=== PATIENT | female | born 1960 | race Caucasian/White ===

== ENCOUNTER 2024-03-25 11:05 | Outpatient (OUT) | payer BC, SELFPAY ==
[2024-03-25 11:32] LABS: Basophils Absolute Auto 0.1 10^3/uL (0.0-0.1); Basophils Percent Auto 1.5 % (0.2-2.0); Eosinophils Absolute Auto 0.2 10^3/uL (0.0-0.7); Hematocrit 41.2 % (36.0-48.0); Hemoglobin 13.7 g/dL (12.0-16.0); Immature Granulocytes Abs Auto 0.01 10^3/uL (0.00-0.03); Immature Granulocytes Pct Auto 0.1 % (0.0-0.5); Lymphocytes Percent Auto 30.1 % (20.5-60.0); Mean Corpuscular HGB Conc 33.3 g/dL (29.9-35.2); Mean Corpuscular Hemoglobin 30.4 pg (26.7-34.0); Mean Corpuscular Volume 91.6 fL (81.0-99.0); Mean Platelet Volume 10.1 fL (9.5-13.5); Monocytes Absolute Auto 0.7 10^3/uL (0.3-0.8); Monocytes Percent Auto 9.6 % (1.7-12.0); Neutrophils Absolute Auto 3.8 10^3/uL (1.4-6.5); Neutrophils Percent Auto 55.7 % (43.0-75.0); Platelet Count 290 10^3/uL (150-450); White Blood Count 6.8 10^3/uL (4.0-11.0)
[2024-03-25 13:16] LABS: Estimated Average Glucose 105 mg/dL; Glycohemoglobin A1C 5.3 % (4.5-6.2)
[2024-03-25 14:32] LABS: Alanine Aminotransferase 27 U/L (14-59); Albumin Globulin Ratio 1.3; Albumin Level 4.4 g/dL (3.4-5.0); Alkaline Phosphatase 70 U/L (46-116); Anion Gap 14.2; Aspartate Amino Transferase 23 U/L (15-37); BUN Creatinine Ratio 21.2; Bilirubin Total 0.5 mg/dL (0.2-1.0); Calcium 9.2 mg/dL (8.5-10.1); Carbon Dioxide 26.8 mmol/L (21.0-32.0); Chloride 100 mmol/L (98-107); Chol HDL Ratio 3.1; Cholesterol 194 mg/dL (<=200); Estimated GFR (African America >60 (>=60); Estimated GFR (Non-African Ame >60 (>=60); Free T3 2.22 pg/mL (2.18-3.98); Globulin 3.4 g/dL; Glucose 76 mg/dL (74-106); HDL Cholesterol 62 mg/dL (40-60); Sodium 137 mmol/L (136-145); Total Protein 7.8 g/dL (6.4-8.2); Triglycerides 80 mg/dL (<=150)
== END 2024-03-25 11:06 | disposition home or self-care (01) ==
PROVIDERS: PCP Family Medicine; Visit Provider Family Medicine
DX: Z00.00 Encounter for general adult medical examination without abnormal findings (principal); E55.9 Vitamin D deficiency, unspecified
CPT/HCPCS: 36415; 80053; 80061; 82306; 83036; 83540; 84436; 84443; 84481; 85025

== ENCOUNTER 2024-03-29 15:36 | Outpatient (OUT) | payer BC, SELFPAY ==
--- NOTE | 2024-03-29 15:38 | MR_ITS ---
[address] [address] Patient Name: SHAUN HERNANDEZ MRN: [id number] date: 1960 Sex: F Assigned Patient Location: MRI Current Patient Location: [facility] Accession/Order Number: [id number] Exam Date: 03/29/2024 15:52 Report Date: 03/30/2024 22:06 At the request of: SAMIR ESCOBAR Procedure: MR cervical spine wo con EXAM: MRI of the cervical spine without IV contrast. REASON FOR EXAM: Cervical Radiculopathy M54.12 COMPARISON: None FINDINGS: No cervical spine fractures, acute malalignment or acute abnormal marrow signal. No spinal canal mass, hematoma or fluid collection. No abnormal cord signal. Cervical spine degenerative changes with associated disc space narrowing at the C4-C5, C5-C6 and C6-C7 levels. Posterior disc osteophyte complexes at the C3-C4, C4-C5, C5-C6 and C6-C7 levels, largest at the C6-C7 level. Mild C3-C4, C4-C5, C5-C6 and C6-C7 spinal canal stenoses. Mild left C3-C4 neural foraminal stenosis. Mild left and mild to moderate right C4-C5 neural foraminal stenoses. Mild to moderate bilateral C5-C6 neural foraminal stenoses. Mild left C6-C7 neural foraminal stenosis. Remainder unremarkable. MR/MR cervical spine wo con IMPRESSION: 1. No acute cervical spine abnormalities. 2. Mild C3-C4, C4-C5, C5-C6 and C6-C7 spinal canal stenoses. 3. Mild to moderate right C4-C5 and bilateral C5-C6 neural foraminal stenoses. Electronically authenticated by: BETH YODER Date: 03/30/2024 22:06
== END 2024-03-29 15:37 | disposition home or self-care (01) ==
LOC: MRI 15:36
PROVIDERS: PCP Family Medicine; Visit Provider Family Medicine
DX: M54.12 Radiculopathy, cervical region (principal); M48.02 Spinal stenosis, cervical region
CPT/HCPCS: 72141

== ENCOUNTER 2024-04-05 12:59 | Outpatient (OUT) | payer BC, SELFPAY ==
--- NOTE | 2024-04-05 13:02 | XR_ITS ---
The [address] [address] Patient Name: SHAUN HERNANDEZ MRN: [id number] date: 1960 Sex: F Assigned Patient Location: [facility] Current Patient Location: Accession/Order Number: [id number] Exam Date: 04/05/2024 13:10 Report Date: 04/06/2024 07:16 At the request of: SAMIR ESCOBAR Procedure: XR DEXA axial skeleton EXAMINATION: XR DEXA axial skeleton HISTORY: Senile osteoporosis COMPARISON: DEXA bone densitometry 09/08/2020 TECHNIQUE: Dual-energy X-ray absorptiometry (DXA) was performed. FINDINGS: FOREARM ANALYSIS: Average bone mineral density is 0.726 g/cm2. T-score (standard deviation relative to young adult mean): 0.2 . +2.5% change since prior study. HIP ANALYSIS: Lowest bone mineral density is within the left femoral neck, 0.779 g/cm2. T-score (standard deviation relative to young adult mean): -1.9 . -0.1% change since prior study. XR/XR DEXA axial skeleton IMPRESSION: World Health Organization Classification: Osteopenia - Moderate Fracture Risk FRAX: Cannot calculate. Pharmacologic treatment recommendations * No uniform recommendation applies to all patients. Management plans must be individualized. * Consider initiating pharmacologic treatment in postmenopausal women and men >= 50 years of age who have the following: Primary fracture prevention: * T-score <= - 2.5 at the femoral neck, total hip, lumbar spine, 33% radius (some uncertainty with existing data) by DXA. * Low bone mass (osteopenia: T-score between - 1.0 and - 2.5) at the femoral neck or total hip by DXA with a 10-year hip fracture risk >= 3% or a 10-year major osteoporosis-related fracture risk >= 20% (i.e., clinical vertebral, hip, forearm, or proximal humerus) based on the [place]-adapted FRAXregistered model. Secondary fracture prevention: * Fracture of the hip or vertebra regardless of BMD [4, 5]. * Fracture of proximal humerus, pelvis, or distal forearm in persons with low bone mass (osteopenia: T-score between - 1.0 and - 2.5). The decision to treat should be individualized in persons with a fracture of the proximal humerus, pelvis, or distal forearm who do not have osteopenia or low BMD [12, 13]. Irene MS, Lobo SL, Monique KL, Meaghan EM, Andi KG, AJ, Patti ES. The clinician's guide to prevention and treatment of osteoporosis. Osteoporos Int. 2021;33(10):0126-6864. doi: 10.1007/r58607-721-54254-w. Epub 2021Dec 06. Erratum in: Osteoporos Int. 2021Mar 07;: PMID: [id number]; PMCID: [id number]. Electronically authenticated by: LIGIA CAN Date: 04/06/2024 07:16
== END 2024-04-05 13:00 | disposition home or self-care (01) ==
LOC: RAD 13:00
PROVIDERS: PCP Family Medicine; Visit Provider Family Medicine
DX: M81.0 Age-related osteoporosis without current pathological fracture (principal); M85.80 Other specified disorders of bone density and structure, unspecified site
CPT/HCPCS: 77080

== ENCOUNTER 2024-07-06 12:04 | Outpatient (OUT) | payer BC, SELFPAY ==
--- NOTE | 2024-07-06 12:09 | XR_ITS ---
The [address] [address] Patient Name: SHAUN HERNANDEZ MRN: [id number] date: 1960 Sex: F Assigned Patient Location: [facility] Current Patient Location: Accession/Order Number: [id number] Exam Date: 07/06/2024 12:15 Report Date: 07/09/2024 08:51 At the request of: SAMIR ESCOBAR Procedure: XR ankle RT 2V PROCEDURE: XR foot RT 2V, XR ankle RT 2V HISTORY: Right Foot Pain ; right ankle pain COMPARISON: None. FINDINGS: BONES:Marked degenerative change of the first metatarsophalangeal joint. Mild degenerative changes of the first toe interphalangeal joint. Moderate sized calcaneal plantar spur. No fracture, dislocation, bone lesion. SOFT TISSUES:No visible soft tissue swelling. EFFUSION:None visible. OTHER: Negative. XR/XR ankle RT 2V IMPRESSION: 1. No acute findings to account for patient's symptoms. 2. Degenerative changes of the first toe. Electronically authenticated by: LIGIA CAN Date: 07/09/2024 08:51
--- NOTE | 2024-07-06 12:09 | XR_ITS ---
The [address] [address] Patient Name: SHAUN HERNANDEZ MRN: [id number] date: 1960 Sex: F Assigned Patient Location: [facility] Current Patient Location: Accession/Order Number: [id number] Exam Date: 07/06/2024 12:15 Report Date: 07/09/2024 08:51 At the request of: SAMIR ESCOBAR Procedure: XR foot RT 2V PROCEDURE: XR foot RT 2V, XR ankle RT 2V HISTORY: Right Foot Pain ; right ankle pain COMPARISON: None. FINDINGS: BONES:Marked degenerative change of the first metatarsophalangeal joint. Mild degenerative changes of the first toe interphalangeal joint. Moderate sized calcaneal plantar spur. No fracture, dislocation, bone lesion. SOFT TISSUES:No visible soft tissue swelling. EFFUSION:None visible. OTHER: Negative. XR/XR foot RT 2V IMPRESSION: 1. No acute findings to account for patient's symptoms. 2. Degenerative changes of the first toe. Electronically authenticated by: LIGIA CAN Date: 07/09/2024 08:51
== END 2024-07-06 12:05 | disposition home or self-care (01) ==
LOC: RAD 12:06
PROVIDERS: PCP Family Medicine; Visit Provider Family Medicine
DX: M79.671 Pain in right foot (principal); M19.071 Primary osteoarthritis, right ankle and foot
CPT/HCPCS: 73600; 73620

== ENCOUNTER 2024-07-14 13:47 | Outpatient (OUT) | payer BC, SELFPAY ==
--- NOTE | 2024-07-14 13:53 | XR_ITS ---
[address] [address] Patient Name: SHAUN HERNANDEZ MRN: [id number] date: 1960 Sex: F Assigned Patient Location: [facility] Current Patient Location: Accession/Order Number: [id number] Exam Date: 07/14/2024 13:55 Report Date: 07/15/2024 07:39 At the request of: IMER BLACKMAN Procedure: XR ankle RT min 3V PROCEDURE: XR ankle RT min 3V COMPARISON: None. HISTORY: Right Ankle Pain FINDINGS: BONES:No acute fracture or dislocation. Pes planus with plantar rotation of the hindfoot. Enthesopathic spurring of the calcaneus. SOFT TISSUES:Negative. No visible soft tissue swelling. EFFUSION:None visible. OTHER: Negative. XR/XR ankle RT min 3V IMPRESSION: Pes planus Electronically authenticated by: LATONIA HARVEY Date: 07/15/2024 07:39
== END 2024-07-14 13:48 | disposition home or self-care (01) ==
LOC: RAD 13:47
PROVIDERS: PCP Family Medicine; Visit Provider Podiatrist Foot & Ankle Surgery
DX: M25.571 Pain in right ankle and joints of right foot (principal); M77.31 Calcaneal spur, right foot; M21.41 Flat foot [pes planus] (acquired), right foot
CPT/HCPCS: 73610

== ENCOUNTER 2024-07-27 14:55 | Outpatient (RCR) | payer BC, SELFPAY | END 2024-08-10 14:33 | disposition home or self-care (01) | LOC: PT 14:55 | PROVIDERS: PCP Family Medicine; Visit Provider Podiatrist Foot & Ankle Surgery | DX: M25.571 Pain in right ankle and joints of right foot (principal) | CPT/HCPCS: 97035; 97112; 97161 ==

== ENCOUNTER 2024-08-11 08:15 | Outpatient (RCR) | payer MEDICARE, SELFPAY | END 2024-09-03 13:22 | disposition home or self-care (01) | LOC: PT 08:15 | PROVIDERS: PCP Family Medicine; Visit Provider Podiatrist Foot & Ankle Surgery | DX: M25.571 Pain in right ankle and joints of right foot (principal) | CPT/HCPCS: 97035; 97112; 97140 ==

== ENCOUNTER 2024-09-14 14:33 | Outpatient (OUT) | payer BC, SELFPAY ==
--- NOTE | 2024-09-14 14:39 | MR_ITS ---
The [address] [address] Patient Name: SHAUN HERNANDEZ MRN: [id number] date: 1960 Sex: F Assigned Patient Location: MRI Current Patient Location: MRI Accession/Order Number: [id number] Exam Date: 09/14/2024 14:45 Report Date: 09/15/2024 12:03 At the request of: IMER BLACKMAN Procedure: MR ankle RT wo con EXAM: MR ankle RT wo con HISTORY: Ankle Sprain COMPARISON: 07/14/2024 TECHNIQUE: MRI images obtained with multiple sequences. MRI of the right ankle without contrast. Sequences obtained by standard department protocol. FINDINGS: No significant degeneration of the ankle joint, subtalar joint, or joints of the midfoot. Achilles tendon is intact. Thickening of the central plantar fascia fibers, measuring up to 8 mm. (Sagittal PD fat-sat image 10). There is adjacent calcaneal bone marrow edema. Findings are consistent with plantar fasciitis. No acute fractures. Anterior and posterior syndesmotic ligaments are intact. Anterior talofibular, posterior talofibular, and calcaneofibular ligaments are intact. Deltoid ligament fibers are intact. No ankle joint effusion. MR/MR ankle RT wo con IMPRESSION: 1. Thickening of the central plantar fascia fibers, measuring up to 8 mm. (Sagittal PD fat-sat image 10). There is adjacent calcaneal bone marrow edema. Findings are consistent with plantar fasciitis. 2. No acute fractures. 3. No acute ligamentous abnormality. 4. No ankle joint effusion. Electronically authenticated by: KEREN AWAD Date: 09/15/2024 12:03
== END 2024-09-14 14:34 | disposition home or self-care (01) ==
LOC: MRI 14:33
PROVIDERS: PCP Family Medicine; Visit Provider Podiatrist Foot & Ankle Surgery
DX: S93.491A Sprain of other ligament of right ankle, initial encounter (principal); M76.821 Posterior tibial tendinitis, right leg; M72.2 Plantar fascial fibromatosis
CPT/HCPCS: 73721